=== PATIENT | male | born 1975 | race Caucasian/White ===

== ENCOUNTER 2019-09-08 08:00 | Emergency (ER) | payer BC ==
[2019-09-08 08:18] VITALS: BP 156/97; PULSE 100
[2019-09-08] MEDS ORDERED: HYDROmorphone 1 MG/ML Syringe IVPUSH PRN (08:20)
[2019-09-08] MEDS ORDERED: Sodium Chloride 0.9% 10 ML Syringe FLUSH PRN (08:21)
--- NOTE | 2019-09-08 08:21 | EDM.PDOC ---
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 States that it is a sharp stabbing and burning pain. "It feels like a hot coal is in there". No vomiting or diarrhea at this time. Feels that he is getting hot but has not had a fever at this time. States that the pain is getting worse. 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 Onset: Sudden Location: Reports: Abdomen Associated Symptoms: Reports: Nausea/Vomiting. Denies: Fever/Chills Left Abdomen Pain Score (Numeric/FACES): 10 - Related Data Allergies Allergy/AdvReac Type Severity Reaction Status Date / Time No Known Allergies Allergy Verified 09/08/19 13:36 Home Meds: Home Meds Acetaminophen/Diphenhydramine [Acetaminophen Pm Gelcap] 1 tab PO BEDTIME PRN [History] DULoxetine HCl [Cymbalta] 60 mg PO DAILY 08/24/14 [History] Pantoprazole Sodium 40 mg PO DAILY 08/24/14 [History] Sucralfate [Carafate] 1 tab PO TID 08/24/14 [History] traMADol [Ultram] 100 mg PO QID 08/24/14 [History] Losartan/Hydrochlorothiazide [Losartan-HCTZ 100-12.5 MG] 1 tab PO DAILY [History] Cholecalciferol (Vitamin D3) [Vitamin D3] 2,000 units PO DAILY 05/04/16 [History ] Past Medical History Cardiovascular History: Reports: Hypertension Other Gastrointestinal History: malrotation of bowel with repair - Past Surgical History GI Surgical History: Reports: Colon Social & Family History - Family History Family Medical History: Noncontributory - Tobacco Use Smoking Status *Q: Never Smoker - Living Situation & Occupation Living situation: Reports: , with Family Occupation: Employed ED ROS GENERAL - Review of Systems Review Of Systems: See Below Constitutional: Denies: Fever, Chills HEENT: Reports: No Symptoms Respiratory: Reports: No Symptoms Cardiovascular: Reports: No Symptoms GI/Abdominal: Reports: Abdominal Pain. Denies: Constipation, Diarrhea : Reports: No Symptoms Musculoskeletal: Reports: No Symptoms Skin: Reports: No Symptoms Neurological: Reports: No Symptoms ED EXAM, GI/ABD - Physical Exam Exam: See Below Exam Limited By: No Limitations General Appearance: Alert, WD/WN, No Apparent Distress Ears: Normal External Exam, Normal Canal, Normal TMs Nose: Normal Inspection Head: Atraumatic, Normocephalic Neck: Normal Inspection, Supple, Non-Tender, Full Range of Motion Respiratory/Chest: No Respiratory Distress, Lungs Clear, Normal Breath Sounds Cardiovascular: Normal Peripheral Pulses, Regular Rate, Rhythm, No Edema GI/Abdominal Exam: Normal Bowel Sounds, Soft, Non-Tender Back Exam: Normal Inspection Extremities: Normal Inspection, No Pedal Edema, Normal Capillary Refill Neurological: Alert, Oriented Psychiatric: Normal Affect Skin Exam: Warm, Dry, Intact Course - Vital Signs Last Recorded V/S: Last Vital Signs Temp 96.8 F 09/08/19 08:17 Pulse 100 09/08/19 08:17 Resp 92 H 09/08/19 08:17 BP 156/97 H 09/08/19 08:17 Pulse Ox 100 09/08/19 08:17 - Orders/Labs/Meds Orders: Active Orders 24 hr Category Date Time Status Abdomen 2V AP Flat Upright [CR] Stat Exams 09/08/19 08:19 Taken Abdomen Pelvis w Cont [CT] Stat Exams 09/08/19 09:14 Taken Saline Lock Insert [OM.PC] Routine Oth 09/08/19 08:21 Ordered Labs: Laboratory Tests 09/08/19 09/08/19 09/08/19 Range/Units 08:25 08:25 08:48 WBC 4.0 L (5.0-10.0) 10^3/uL RBC 4.78 (4.50-6.00) 10^6/uL Hgb 14.1 (14.0-18.0) g/dL Hct 41.3 (40.0-54.0) % MCV 86.4 (82.0-94.0) fL MCH 29.5 (27.0-32.0) pg MCHC 34.1 (33.0-38.0) g/dL RDW Coeff of Charlie 13.2 (11.0-15.0) % Plt Count 210 (150-400) 10^3/uL Neut % (Auto) 60.5 (35-85) % Lymph % (Auto) 31.9 (10-55) % [place] % (Auto) 7.3 (0-16) % Eos % (Auto) 0 (0-5) % Baso % (Auto) 0.3 (0-3) % Neut # (Auto) 2.41 (1.80-7.00) 10^3/uL Lymph # (Auto) 1.27 (1.00-4.80) 10^3/uL [place] # (Auto) 0.29 (0.00-0.80) 10^3/uL Eos # (Auto) 0.00 (0.00-0.45) 10^3/uL Baso # (Auto) 0.01 10^3/uL Sodium 141 (136-145) mEq/L Potassium 3.7 (3.5-5.0) mEq/L Chloride 105 (98-106) mEq/L Carbon Dioxide 26 (21-32) mmol/L BUN 12 (7-18) mg/dL Creatinine 1.0 (0.7-1.3) mg/dL Est Cr Clr Drug Dosing 105.42 mL/min Estimated GFR (MDRD) > 60 (>=60) mL/min Glucose 122 H D (75-99) mg/dL Calcium 8.7 (8.4-10.1) mg/dL C-Reactive Protein < 0.2 L (0.2-0.8) mg/dL Urine Color Yellow (YELLOW) Urine Appearance Clear (CLEAR) Urine pH 6.0 (4.5-8.0) Ur Specific [place] 1.020 (1.003-1.020) Urine Protein Negative (NEGATIVE) mg/dL Urine Glucose (UA) Negative (NEGATIVE) mg/dL Urine Ketones Negative (NEGATIVE) mg/dL Urine Occult Blood Trace-intact H (NEGATIVE) Urine Nitrite Negative (NEGATIVE) Urine Bilirubin Negative (NEGATIVE) Urine Urobilinogen 0.2 (0.2-1.0) EU/dL Ur Leukocyte Esterase Negative (NEGATIVE) Urine RBC 0-5 (0-5) /HPF Urine WBC Not seen (0-5) /HPF Urine Mucus Few H (NOT SEEN) /HPF Meds: Medications Discontinued Medications Generic Name Dose Route Start Last Admin Trade Name Freq PRN Reason Stop Dose Admin Barium Sulfate 450 ml 09/08/19 10:14 09/08/19 10:26 Readi-Cat 2 PO 09/08/19 10:15 450 ml ONETIME ONE Administration Fentanyl 50 mcg 09/08/19 09:59 09/08/19 10:05 Sublimaze IVPUSH 09/08/19 10:00 50 mcg ONETIME ONE Administration Hydromorphone HCl 1 mg 09/08/19 08:20 09/08/19 08:27 Dilaudid IVPUSH 1 mg Q2H PRN Administration Pain Hydromorphone HCl 2 mg 09/08/19 09:15 09/08/19 09:28 Dilaudid IVPUSH 09/08/19 09:16 2 mg ONETIME ONE Administration Ondansetron HCl 8 mg/ Sodium 54 mls @ 100 mls/hr 09/08/19 09:16 09/08/19 09: 34 Chloride IV 09/08/19 09:48 100 mls/hr NOW ONE Administration Lactated Ringer's 1,000 mls @ 100 mls/hr 09/08/19 12:00 Ringers, Lactated IV ASDIRECTED ALBER Iopamidol 100 ml 09/08/19 10:14 09/08/19 10:26 Isovue-370 (76%) IVPUSH 09/08/19 10:15 100 ml ONETIME ONE Administration Sodium Chloride 10 ml 09/08/19 08:21 09/08/19 08:30 Saline Flush FLUSH 10 ml ASDIRECTED PRN Administration Keep Vein Open Departure - Departure Time of Disposition: 12:10 Disposition: DC/Tfer to Other 70 Condition: Good Clinical Impression: Abdominal pain Qualifiers: Abdominal location: left lower quadrant Qualified Code(s): R10.32 - Left lower quadrant pain - Discharge Information *PRESCRIPTION DRUG MONITORING PROGRAM REVIEWED*: Not Applicable *COPY OF PRESCRIPTION DRUG MONITORING REPORT IN PATIENT MARIFER: Not Applicable Referrals: PCP,Unobtain [Primary Care Provider] - Forms: ED Department Discharge Additional Instructions: Flexible sigmoidoscopy with Dr. Gomez today. - Problem List & Annotations (1) Abdominal pain SNOMED Code(s): 83062920 Code(s): R10.9 - UNSPECIFIED ABDOMINAL PAIN Status: Acute Qualifiers: Abdominal location: left lower quadrant Qualified Code(s): R10.32 - Left lower quadrant pain - Problem List Review Problem List Initiated/Reviewed/Updated: Yes - My Orders Last 24 Hours: My Active Orders 09/08/19 08:19 Abdomen 2V AP Flat Upright [CR] Stat 09/08/19 08:21 Saline Lock Insert [OM.PC] Routine 09/08/19 09:14 Abdomen Pelvis w Cont [CT] Stat - Assessment/Plan Admission H&P: Please use this note as an admission H&P Last 24 Hours: My Active Orders 09/08/19 08:19 Abdomen 2V AP Flat Upright [CR] Stat 09/08/19 08:21 Saline Lock Insert [OM.PC] Routine 09/08/19 09:14 Abdomen Pelvis w Cont [CT] Stat
[2019-09-08 08:37] LABS: CHLORIDE,CL 105 mEq/L (98-106); SODIUM,NA 141 mEq/L (136-145)
[2019-09-08] MEDS ORDERED: HYDROmorphone 1 MG/ML Syringe IVPUSH ONE (09:15)
[2019-09-08] MEDS ORDERED: Ondansetron 8 MG in Sodium Chloride 0.9% 50 ML IV ONE (09:16)
[2019-09-08] MEDS ORDERED: fentaNYL 100 MCG/2 ML SDV IVPUSH ONE (09:59)
[2019-09-08] MEDS ORDERED: Barium Sulfate Oral Susp 450 ML Bottle PO ONE (10:14)
[2019-09-08] MEDS ORDERED: Iopamidol 755 Mg/ML 100 ML Bottle IVPUSH ONE (10:14)
[2019-09-08] MEDS ORDERED: Lactated Ringers 1,000 ML IV SCH (12:00)
== END 2019-09-08 12:14 | disposition other institution (70) ==
LOC: CC.ED 08:00
DX: R10.13 Epigastric pain (principal); I10 Essential (primary) hypertension; Z79.899 Other long term (current) drug therapy
CPT/HCPCS: 36415; 74019; 74177; 80048; 81001; 85025; 86140; 96365; 96375; 96376; 99285; J1170; J2405; J3010; J7050; Q9967

== ENCOUNTER 2019-09-08 13:56 | Observation (INO) | payer BC ==
[2019-09-08] MEDS ORDERED: Ondansetron 4 MG Tab.DIS PO PRN (14:15)
[2019-09-08] MEDS ORDERED: Lactated Ringers 1,000 ML IV SCH (14:15)
[2019-09-08] MEDS ORDERED: fentaNYL 100 MCG/2 ML SDV IVPUSH PRN (14:18)
[2019-09-08] MEDS ORDERED: Enoxaparin 40 MG/0.4 ML Syringe SUBCUT SCH (16:00)
[2019-09-08] MEDS ORDERED: Acetaminophen 500 MG Tab PO PRN (16:10)
[2019-09-08] MEDS ORDERED: diphenhydrAMINE 25 MG Cap PO PRN (16:12)
[2019-09-08] MEDS: traMADol 50 MG Tab PO SCH ×2 (16:24→21:46)
[2019-09-08] MEDS: TRAMADOL 50 MG PO SCH (20:00)
[2019-09-08] MEDS ORDERED: SUCRALFATE 1 GM PO SCH (20:00)
[2019-09-09] MEDS ORDERED: Pantoprazole 40 MG Tab.CR PO SCH (07:00)
[2019-09-09] MEDS: TRAMADOL 50 MG PO SCH (07:41)
[2019-09-09] MEDS ORDERED: Cyanocobalamin (Vitamin B12) 1,000 MCG/ML SDV IM ONE (07:53)
--- NOTE | 2019-09-09 07:58 | PCM.DCSUM1 ---
Discharge Summary - Hospital Course HPI Initial Comments: This patient came to the ER yesterday for LLQ abdominal pain. Patient had a CT scan that was negative. General surgeon then scoped the patient and reported it was normal. The patient is supposed to wear a CPAP at home at bedtime, but does not. He had desaturation in the 60s after procedure per general surgeon. Patient was admitted for observation. The patient today reports that his pain has resolved. He reports he is feeling good and is ready to go home. Patient is 99% on 2L NC. This oxygen was removed, oxygen saturation is 97%. Patient requests a Vit B12 injection while here, ordered. The patient CBC is unremarkable today, no fever, no vomiting, oxygen saturation is stable, and pain is resolved. Will discharge. - Discharge Data Discharge Date: 09/09/19 Discharge Disposition: Home, Self-Care 01 Condition: Good - Referral to Home Health Primary Care Physician: Rojelio Amanda MD - Patient Instructions Diet: Usual Diet as Tolerated Activity: As Tolerated Driving: May Drive Today Showering/Bathing: May Shower Notify Provider of: Fever, Increased Pain, Nausea and/or Vomiting Other/Special Instructions: Followup with your primary care provider in the next 5-7 days. Return to the ER for worsening of condition or any emergent concerns such as increase in abdominal pain, vomiting, fever. Increase fluids. Increase fiber. Miralax as needed. Enemas as needed - Discharge Plan *PRESCRIPTION DRUG MONITORING PROGRAM REVIEWED*: Not Applicable *COPY OF PRESCRIPTION DRUG MONITORING REPORT IN PATIENT MARIFER: Not Applicable Home Medications: Home Meds Acetaminophen/Diphenhydramine [Acetaminophen Pm Gelcap] 1 tab PO BEDTIME PRN [History] Pantoprazole Sodium 40 mg PO DAILY 08/24/14 [History] Sucralfate [Carafate] 1.5 tab PO BID 08/24/14 [History] traMADol [Ultram] 100 mg PO BID 08/24/14 [History] Losartan/Hydrochlorothiazide [Losartan-HCTZ 100-12.5 MG] 1 tab PO DAILY [History] Cholecalciferol (Vitamin D3) [Vitamin D3] 2,000 units PO DAILY 05/04/16 [History ] Pramipexole [Mirapex] 0.5 mg PO BEDTIME 09/08/19 [History] Pregabalin [Lyrica] 50 mg PO BEDTIME 09/08/19 [History] Pregabalin [Lyrica] 100 mg PO DAILY 09/08/19 [History] Venlafaxine HCl [Venlafaxine ER] 75 mg PO DAILY 09/08/19 [History] Oxygen Therapy Mode: CPAP Patient Handouts: Abdominal Pain, Adult, [id number] - Discharge Summary/Plan Comment DC Time >30 min.: No Discharge Summary/Plan Comment: Followup with your primary care provider in the next 5-7 days Return to the ER for worsening of condition or any emergent concerns such as increase in abdominal pain, vomiting, fever Increase fluids Increase fiber Miralax as needed Enemas as needed - General Info Functional Status: Reports: Pain Controlled, Tolerating Diet, Ambulating - Review of Systems General: Reports: No Symptoms. Denies: Fever HEENT: Reports: No Symptoms Pulmonary: Reports: No Symptoms Cardiovascular: Reports: No Symptoms Gastrointestinal: Reports: No Symptoms. Denies: Abdominal Pain, Diarrhea, Nausea, Vomiting Genitourinary: Reports: No Symptoms Musculoskeletal: Reports: No Symptoms Skin: Reports: No Symptoms Neurological: Reports: No Symptoms Psychiatric: Reports: No Symptoms - Patient Data Vitals - Most Recent: Last Vital Signs Temp 98.5 F 09/09/19 04:00 Pulse 85 09/09/19 04:00 Resp 16 09/09/19 04:00 BP 127/67 09/09/19 04:00 Pulse Ox 99 09/09/19 04:00 Weight - Most Recent: 210 lb Lab Results - Last 24 hrs: Laboratory Results - last 24 hr 09/09/19 Range/Units 07:00 WBC 5.4 (5.0-10.0) 10^3/uL RBC 4.64 (4.50-6.00) 10^6/uL Hgb 13.6 L (14.0-18.0) g/dL Hct 40.9 (40.0-54.0) % MCV 88.1 (82.0-94.0) fL MCH 29.3 (27.0-32.0) pg MCHC 33.3 (33.0-38.0) g/dL RDW Coeff of Charlie 13.3 (11.0-15.0) % Plt Count 203 (150-400) 10^3/uL Neut % (Auto) 59.2 (35-85) % Lymph % (Auto) 31.5 (10-55) % [place] % (Auto) 8.7 (0-16) % Eos % (Auto) 0.4 (0-5) % Baso % (Auto) 0.2 (0-3) % Neut # (Auto) 3.20 (1.80-7.00) 10^3/uL Lymph # (Auto) 1.70 (1.00-4.80) 10^3/uL [place] # (Auto) 0.47 (0.00-0.80) 10^3/uL Eos # (Auto) 0.02 (0.00-0.45) 10^3/uL Baso # (Auto) 0.01 10^3/uL Med Orders - Current: Current Medications Acetaminophen (Tylenol Extra Strength) 500 mg PO BEDTIME PRN PRN Reason: INSOMNIA Cyanocobalamin (Vitamin B12) 1,000 mcg IM ONETIME ONE Stop: 09/09/19 07:54 Diphenhydramine HCl (Benadryl) 25 mg PO BEDTIME PRN PRN Reason: INSOMNIA Duloxetine HCl (Cymbalta) 60 mg PO DAILY [facility] Last Admin: 09/09/19 07:34 Dose: Not Given Enoxaparin Sodium (Lovenox) 40 mg SUBCUT Q24H [facility] Last Admin: 09/08/19 16:23 Dose: 40 mg Fentanyl (Sublimaze) 25 mcg IVPUSH Q6H PRN PRN Reason: Abdominal Pain Lactated Ringer's (Ringers, Lactated) 1,000 mls @ 100 mls/hr IV ASDIRECTED [facility] Last Admin: 09/08/19 16:24 Dose: 100 mls/hr Losartan 100mg- Hydrochlorothiazide 12.5mg #Own Med# 1 each PO DAILY [facility] Last Admin: 09/09/19 07:37 Dose: 1 each Ondansetron HCl (Zofran Odt) 8 mg PO Q4H PRN PRN Reason: nausea, able to take PO Pantoprazole Sodium (Protonix) 40 mg PO ACBREAKFAST [facility] Last Admin: 09/09/19 06:44 Dose: Not Given Pramipexole Dihydrochloride (Mirapex) 0.5 mg PO BEDTIME [facility] Last Admin: 09/08/19 20:00 Dose: 0.5 mg Pregabalin (Lyrica) 50 mg PO BEDTIME [facility] Pregabalin (Lyrica) 100 mg PO DAILY [facility] Last Admin: 09/09/19 07:37 Dose: 100 mg Sucralfate (Carafate) 1.5 gm PO 0800,1730 [facility] Last Admin: 09/09/19 07:33 Dose: 1.5 gm Tramadol HCl (Ultram) 100 mg PO BID [facility] Last Admin: 09/09/19 07:41 Dose: 100 mg Venlafaxine HCl (Effexor Xr) 75 mg PO DAILY [facility] Last Admin: 09/09/19 07:35 Dose: 75 mg Discontinued Medications Hydrochlorothiazide (Hydrochlorothiazide) 12.5 mg PO DAILY [facility] Losartan Potassium (Cozaar) 100 mg PO DAILY [facility] Sucralfate (Carafate) 1.5 gm PO TID [facility] Last Admin: 09/08/19 19:32 Dose: 1.5 gm Tramadol HCl (Ultram) 100 mg PO QID [facility] Last Admin: 09/08/19 21:46 Dose: Not Given - Exam General: Reports: Alert, Oriented, Cooperative Lungs: Reports: Clear to Auscultation, Normal Respiratory Effort Cardiovascular: Reports: Regular Rate, Regular Rhythm, No Murmurs GI/Abdominal Exam: Normal Bowel Sounds, Soft, Non-Tender, No Organomegaly, No Distention, No Abnormal Bruit, No Mass, Pelvis Stable, Other (old surgical scar vertical) Back Exam: Reports: Normal Inspection, Full Range of Motion Extremities: Normal Inspection, Normal Range of Motion, Non-Tender, No Pedal Edema, Normal Capillary Refill Skin: Reports: Warm, Dry, Intact Psy/Mental Status: Reports: Alert, Normal Affect, Normal Mood
[2019-09-09] MEDS ORDERED: Hydrochlorothiazide 12.5 MG Cap PO SCH (08:00)
[2019-09-09] MEDS ORDERED: SUCRALFATE 1 GM PO SCH (08:00)
[2019-09-09] MEDS ORDERED: Losartan 100 MG Tab PO SCH (08:00)
[2019-09-09] MEDS ORDERED: DULoxetine 30 MG Cap PO SCH (08:00)
[2019-09-09] MEDS ORDERED: [UNRECOGNIZED DRUG - OTHER] PO SCH (08:00)
[2019-09-09] MEDS ORDERED: VENLAFAXINE 75 MG PO SCH (08:00)
[2019-09-09] MEDS ORDERED: PREGABALIN 50 MG PO SCH ×2 (08:00→20:00)
[2019-09-09] MEDS ORDERED: LOSARTAN PO SCH (08:00)
[2019-09-09 09:40] VITALS: BP 129/73; PULSE 72
[2019-09-09] MEDS ORDERED: PRAMIPEXOLE 0.5 MG PO SCH (20:00)
== END 2019-09-09 09:25 | disposition home or self-care (01) ==
LOC: UNDOADMOB 13:56 → CC.MS 13:56
PROVIDERS: ADMIT Physician Assistant Medical; ATTEND Family Medicine
DX: R10.32 Left lower quadrant pain (principal); I10 Essential (primary) hypertension; Z79.899 Other long term (current) drug therapy
CPT/HCPCS: 36415; 85025; A9270; J1650; J3420; J7120; 96360; 96361; 96372; G0378

== ENCOUNTER → 2019-09-08 | Day surgery (SDC) | payer BC ==
[~2019-09-08] MED LIST: Lactated Ringers 1,000 ML ONE; Midazolam 1 MG/ML 2 ML SDV IV ONE; fentaNYL 100 MCG/2 ML SDV IV ONE
--- NOTE | 2019-09-08 13:31 | OR ---
DATE OF OPERATION: 09/08/2019 PREOPERATIVE DIAGNOSIS: LEFT LOWER QUADRANT ABDOMINAL PAIN AND POSSIBLE CT SCAN ABNORMALITY OF THE COLON. POSTOPERATIVE DIAGNOSIS: LEFT LOWER QUADRANT ABDOMINAL PAIN AND POSSIBLE CT SCAN ABNORMALITY OF THE COLON. SURGEON: Dc Gomez MD PROCEDURE: TOTAL COLONOSCOPY. ANESTHESIA: Conscious sedation. SPECIMEN: None. FINDINGS: Normal colonoscopy. RECOMMENDATIONS: I do not think this patient's left lower quadrant abdominal pain is related to colon. He does not appear to have an obstruction on CT scan. There was a questionable area in the sigmoid, but with the scope there is no significant abnormality there. Probably consider simply symptomatic control. DESCRIPTION OF PROCEDURE: After adequate preparation, the colonoscope was inserted into the rectum. This patient had two Fleet enemas pre-scope and actually they did pretty well. I was able to advance the scope up to the proximal transverse colon without any difficulty. Even though this patient has had a malrotation surgery, the colonoscope glided along the colon without problems. At the proximal transverse colon and hepatic flexure, the bowel prep was poor, but it was still adequate to look at any gross abnormalities. The scope was advanced down through the cecum, and I was able to go into the terminal ileum for at least a foot or so. No thickening or abnormalities of the cecal lining were noted. Air was suctioned from the colon and the scope removed. ZURI/DANIE /[id number]
[2019-09-08 13:55] VITALS: BP 129/81; PULSE 76
== END ==
LOC: CC.SDS 12:28
PROVIDERS: ATTEND Surgery
DX: R10.32 Left lower quadrant pain (principal); I10 Essential (primary) hypertension; Z79.899 Other long term (current) drug therapy
CPT/HCPCS: 45330; J2250; J3010

== ENCOUNTER 2019-11-28 14:45 | Emergency (ER) | payer BC ==
[2019-11-28 15:24] LABS: CHLORIDE,CL 99 mEq/L (98-106); SODIUM,NA 138 mEq/L (136-145)
[2019-11-28 16:14] VITALS: BP 120/72; PULSE 83
[2019-11-28] MEDS ORDERED: Sodium Chloride 0.9% 1,000 ML IV ONE (16:14)
--- NOTE | 2019-11-28 16:52 | EDM.PDOC ---
ED HPI GENERAL MEDICAL PROBLEM - General Chief Complaint: Neuro Symptoms/Deficits Stated Complaint: slow reponse, blurred vision, lightheaded Time Seen by Provider: 11/28/19 14:57 Source of Information: Reports: Patient, Family - History of Present Illness INITIAL COMMENTS - FREE TEXT/NARRATIVE: Cortez is a 44 year old male who presents ambulatory to the ED with his with c/o "feeling cloudy." He was seen in [facility] and advised to present to ED. He reports he has "cloudy vision" and feels like he was "drugged or something." Has difficulty describing his vision. He reports that he hasn't felt well the past two days, but it became worse this afternoon. He reports his vision became "cloudy" so he called his , who recommended he be seen. He reports the past few days he has "felt off balance." Denies any dizziness or spinning sensation. Does report it feels "weird when he breathes" too. For the past few months he has been struggling with headaches. Had recent MRI in October he believes. Does not currently have a headache. No recent head trauma. He reports he just feels fatigued and "drugged." He is also scheduled for a sleep study in the near future, so has been more fatigued lately. Denies any ETOH, drug, or other medications. He is alert and oriented upon presentation. Does report numbness in his legs, which has been chronic for him. does report he has been under increased stress the last few days. He does not feel this has affected him. No other complaints. 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 Onset Date: 11/26/19 Duration: Getting Worse Location: Reports: Generalized Associated Symptoms: Reports: Loss of Appetite, Malaise, Weakness. Denies: Confusion, Chest Pain, Cough, cough w sputum, Diaphoresis, Fever/Chills, Headaches, Nausea/Vomiting, Rash, Seizure, Shortness of Breath, Syncope Back Pain Score (Numeric/FACES): 6 - Related Data Allergies Allergy/AdvReac Type Severity Reaction Status Date / Time No Known Allergies Allergy Verified 11/28/19 15:11 Home Meds: Home Meds Acetaminophen/Diphenhydramine [Acetaminophen Pm Gelcap] 1 tab PO BEDTIME PRN [History] Pantoprazole Sodium 40 mg PO DAILY 08/24/14 [History] Sucralfate [Carafate] 1.5 tab PO BID 08/24/14 [History] traMADol [Ultram] 100 mg PO BID 08/24/14 [History] Losartan/Hydrochlorothiazide [Losartan-HCTZ 100-12.5 MG] 1 tab PO DAILY [History] Cholecalciferol (Vitamin D3) [Vitamin D3] 2,000 units PO DAILY 05/04/16 [History ] Pramipexole [Mirapex] 0.5 mg PO BEDTIME 09/08/19 [History] Pregabalin [Lyrica] 150 mg PO BID 09/08/19 [History] Venlafaxine HCl [Venlafaxine ER] 75 mg PO DAILY 09/08/19 [History] Past Medical History HEENT History: Reports: Other (See Below) Other HEENT History: welding spark to left ear Cardiovascular History: Reports: High Cholesterol, Hypertension Respiratory History: Reports: Other (See Below) Other Respiratory History: going to be getting tested for sleep apnea soon Gastrointestinal History: Reports: Colon Polyp, Diverticulosis, GERD Other Gastrointestinal History: bowel surgeries x2 in 2009 and 1973. Musculoskeletal History: Reports: Back Pain, Chronic, Fracture, Fibromyalgia, Other (See Below) Other Musculoskeletal History: bone spur Neurological History: Reports: Headaches, Chronic, Neuropathy, Peripheral, Vertigo, Other (See Below) Other Neuro History: herniated disc Psychiatric History: Reports: Anxiety, Depression Hematologic History: Reports: Blood Transfusion(s) Dermatologic History: Reports: Eczema - Past Surgical History Cardiovascular Surgical History: Reports: None Respiratory Surgical History: Reports: None GI Surgical History: Reports: Colon, Colonoscopy, Hernia, Inguinal, Small Bowel , Other (See Below) Other GI Surgeries/Procedures: umbilical hernia Neurological Surgical History: Reports: None Musculoskeletal Surgical History: Reports: Arthroscopic Procedure, Carpal Tunnel , Hip Replacement Dermatological Surgical History: Reports: None Social & Family History - Family History Family Medical History: Noncontributory - Tobacco Use Smoking Status *Q: Never Smoker - Caffeine Use Caffeine Use: Reports: None - Recreational Drug Use Recreational Drug Use: No ED ROS GENERAL - Review of Systems Review Of Systems: See Below Constitutional: Reports: Malaise, Weakness, Fatigue, Decreased Appetite. Denies : Fever, Chills HEENT: Reports: Vision Change. Denies: Eye Discharge, Eye Pain, Rhinitis, Sinus Problem, Vertigo Respiratory: Denies: Shortness of Breath, Wheezing, Pleuritic Chest Pain, Cough , Sputum, Hemoptysis Cardiovascular: Denies: Chest Pain, Dyspnea on Exertion, Edema, Lightheadedness , Syncope Endocrine: Reports: Fatigue. Denies: High Glucose, Low Glucose, Polydypsia, Polyuria GI/Abdominal: Reports: Decreased Appetite. Denies: Abdominal Pain, Anorexia, Black Stool, Bloody Stool, Constipation, Diarrhea, Hematemesis, Nausea, Vomiting : Denies: Dysuria, Frequency, Urgency Musculoskeletal: Reports: Back Pain Skin: Denies: Diaphoresis Neurological: Reports: Numbness, Paresthesia, Tingling, Weakness. Denies: Confusion, Dizziness, Headache, Syncope, Tremors Psychiatric: Reports: Anxiety ED EXAM, NEURO - Physical Exam Exam: See Below Exam Limited By: No Limitations General Appearance: Alert, WD/WN, No Apparent Distress, Anxious Eye Exam: Bilateral Eye: EOMI, Normal Fundi, Normal Inspection, PERRL Ears: Normal External Exam, Normal Canal, Hearing Grossly Normal, Normal TMs Nose: Normal Inspection, Normal Mucosa, No Blood Throat/Mouth: Normal Inspection, Normal Lips, Normal Teeth, Normal Gums, Normal Oropharynx, Normal Voice, No Airway Compromise Head Exam: Atraumatic, Normocephalic Neck: Normal Inspection, Supple, Non-Tender, Full Range of Motion Respiratory/Chest: No Respiratory Distress, Lungs Clear, Normal Breath Sounds, No Accessory Muscle Use, Chest Non-Tender Cardiovascular: Normal Peripheral Pulses, Regular Rate, Rhythm, No Edema, No Gallop, No JVD, No Murmur, No Rub GI/Abdominal: Normal Bowel Sounds, Soft, Non-Tender, No Organomegaly, No Distention, No Abnormal Bruit, No Mass Neurological: Alert, Normal Mood/Affect, Normal Dorsiflexion, CN II-XII Intact, Normal Plantar Flexion, Normal Gait, Normal Reflexes, No Motor/Sensory Deficits , Oriented x 3, Abnormal Finger to Nose, Abnormal Sensation, Abnormal Light Touch Back Exam: Normal Inspection, Full Range of Motion, NT Extremities: Normal Inspection, Normal Range of Motion, Non-Tender, No Pedal Edema, Normal Capillary Refill Psychiatric: Anxious Skin Exam: Warm, Dry, Intact, Normal Color, No Rash Course - Vital Signs Last Recorded V/S: Last Vital Signs Temp 98.4 F 11/28/19 15:18 Pulse 83 11/28/19 16:13 Resp 16 11/28/19 16:13 BP 120/72 11/28/19 16:13 Pulse Ox 95 11/28/19 16:13 Orthostatic Blood Pressure [ 117/74 Standing] Orthostatic Blood Pressure [ 119/70 Sitting] Orthostatic Blood Pressure [ 128/85 Supine] - Orders/Labs/Meds Labs: Laboratory Tests 11/28/19 11/28/19 11/28/19 Range/Units 14:53 14:53 14:54 WBC (5.0-10.0) 10^3/uL RBC (4.50-6.00) 10^6/uL Hgb (14.0-18.0) g/dL Hct (40.0-54.0) % MCV (82.0-94.0) fL MCH (27.0-32.0) pg MCHC (33.0-38.0) g/dL RDW Coeff of Charlie (11.0-15.0) % Plt Count (150-400) 10^3/uL Neut % (Auto) (35-85) % Lymph % (Auto) (10-55) % [place] % (Auto) (0-16) % Eos % (Auto) (0-5) % Baso % (Auto) (0-3) % Neut # (Auto) (1.80-7.00) 10^3/uL Lymph # (Auto) (1.00-4.80) 10^3/uL [place] # (Auto) (0.00-0.80) 10^3/uL Eos # (Auto) (0.00-0.45) 10^3/uL Baso # (Auto) 10^3/uL PT (9.7-12.3) SEC INR (0.92-1.18) APTT (23.2-32.3) SEC Carboxyhemoglobin % Sodium 138 (136-145) mEq/L Potassium 3.8 (3.5-5.0) mEq/L Chloride 99 (98-106) mEq/L Carbon Dioxide 29 (21-32) mmol/L BUN 17 (7-18) mg/dL Creatinine 1.2 (0.7-1.3) mg/dL Est Cr Clr Drug Dosing 90.38 mL/min Estimated GFR (MDRD) > 60 (>=60) mL/min Glucose 126 H (75-99) mg/dL Calcium 8.7 (8.4-10.1) mg/dL Creatine Kinase 261 H (35-232) U/L Troponin I < 0.017 (0.00-0.06) ng/mL Urine Color Yellow (YELLOW) Urine Appearance Clear (CLEAR) Urine pH 6.0 (4.5-8.0) Ur Specific [place] 1.020 (1.003-1.020) Urine Protein Negative (NEGATIVE) mg/dL Urine Glucose (UA) Negative (NEGATIVE) mg/dL Urine Ketones Negative (NEGATIVE) mg/dL Urine Occult Blood Negative (NEGATIVE) Urine Nitrite Negative (NEGATIVE) Urine Bilirubin Negative (NEGATIVE) Urine Urobilinogen 0.2 (0.2-1.0) EU/dL Ur Leukocyte Esterase Negative (NEGATIVE) Urine Opiates Screen Negative (NEGATIVE) Ur Oxycodone Screen Negative (NEGATIVE) Urine Methadone Screen Negative (NEGATIVE) Ur Barbiturates Screen Negative (NEGATIVE) U Tricyclic Antidepress Negative (NEGATIVE) Ur Phencyclidine Scrn Negative (NEGATIVE) Ur Amphetamine Screen Negative (NEGATIVE) U Methamphetamines Scrn Negative (NEGATIVE) Urine MDMA Screen Negative (NEGATIVE) U Benzodiazepines Scrn Negative (NEGATIVE) Urine Cocaine Screen Negative (NEGATIVE) U Marijuana (THC) Screen Negative (NEGATIVE) Ethyl Alcohol < 3 (0-3) mg/dL 11/28/19 11/28/19 11/28/19 Range/Units 15:07 15:07 16:57 WBC 5.8 (5.0-10.0) 10^3/uL RBC 5.05 (4.50-6.00) 10^6/uL Hgb 14.9 (14.0-18.0) g/dL Hct 44.5 (40.0-54.0) % MCV 88.1 (82.0-94.0) fL MCH 29.5 (27.0-32.0) pg MCHC 33.5 (33.0-38.0) g/dL RDW Coeff of Charlie 13.4 (11.0-15.0) % Plt Count 269 (150-400) 10^3/uL Neut % (Auto) 58.5 (35-85) % Lymph % (Auto) 33.3 (10-55) % [place] % (Auto) 7.4 (0-16) % Eos % (Auto) 0.5 (0-5) % Baso % (Auto) 0.3 (0-3) % Neut # (Auto) 3.39 (1.80-7.00) 10^3/uL Lymph # (Auto) 1.93 (1.00-4.80) 10^3/uL [place] # (Auto) 0.43 (0.00-0.80) 10^3/uL Eos # (Auto) 0.03 (0.00-0.45) 10^3/uL Baso # (Auto) 0.02 10^3/uL PT 9.6 L (9.7-12.3) SEC INR 0.93 (0.92-1.18) APTT 26.7 (23.2-32.3) SEC Carboxyhemoglobin 2.4 % Sodium (136-145) mEq/L Potassium (3.5-5.0) mEq/L Chloride (98-106) mEq/L Carbon Dioxide (21-32) mmol/L BUN (7-18) mg/dL Creatinine (0.7-1.3) mg/dL Est Cr Clr Drug Dosing mL/min Estimated GFR (MDRD) (>=60) mL/min Glucose (75-99) mg/dL Calcium (8.4-10.1) mg/dL Creatine Kinase (35-232) U/L Troponin I (0.00-0.06) ng/mL Urine Color (YELLOW) Urine Appearance (CLEAR) Urine pH (4.5-8.0) Ur Specific [place] (1.003-1.020) Urine Protein (NEGATIVE) mg/dL Urine Glucose (UA) (NEGATIVE) mg/dL Urine Ketones (NEGATIVE) mg/dL Urine Occult Blood (NEGATIVE) Urine Nitrite (NEGATIVE) Urine Bilirubin (NEGATIVE) Urine Urobilinogen (0.2-1.0) EU/dL Ur Leukocyte Esterase (NEGATIVE) Urine Opiates Screen (NEGATIVE) Ur Oxycodone Screen (NEGATIVE) Urine Methadone Screen (NEGATIVE) Ur Barbiturates Screen (NEGATIVE) U Tricyclic Antidepress (NEGATIVE) Ur Phencyclidine Scrn (NEGATIVE) Ur Amphetamine Screen (NEGATIVE) U Methamphetamines Scrn (NEGATIVE) Urine MDMA Screen (NEGATIVE) U Benzodiazepines Scrn (NEGATIVE) Urine Cocaine Screen (NEGATIVE) U Marijuana (THC) Screen (NEGATIVE) Ethyl Alcohol (0-3) mg/dL Meds: Medications Discontinued Medications Generic Name Dose Route Start Last Admin Trade Name Paulino PRN Reason Stop Dose Admin Sodium Chloride 1,000 mls @ 999 mls/hr 11/28/19 16:14 11/28/19 16:39 Normal Saline IV 11/28/19 17:14 Not Given .BOLUS ONE - Radiology Interpretation Free Text/Narrative:: Negative head CT CT Results Date: 11/28/19 CT Results Time: 16:02 Departure - Departure Time of Disposition: 16:52 Disposition: Home, Self-Care 01 Condition: Fair Clinical Impression: Blurred vision, bilateral Altered mental status, unspecified Qualifiers: Altered mental status type: unspecified Qualified Code(s): R41.82 - Altered mental status, unspecified - Discharge Information *PRESCRIPTION DRUG MONITORING PROGRAM REVIEWED*: Not Applicable *COPY OF PRESCRIPTION DRUG MONITORING REPORT IN PATIENT MARIFER: Not Applicable Instructions: Blurred Vision, Adult Referrals: PCP,Unknown [Primary Care Provider] - Forms: ED Department Discharge Additional Instructions: - Lab, EKG, and head CT negative - Discussed no emergent findings - We will notify you of carbon monoxide results when available - Rest and push fluids - Follow up with PCP for recheck next week, sooner if symptoms worsen - Return to ED for emergent needs Sepsis Event Note - Evaluation Sepsis Screening Result: No Definite Risk - Focused Exam Date Exam was Performed: 11/30/19 Time Exam was Performed: 13:18 - Problem List & Annotations (1) Altered mental status, unspecified SNOMED Code(s): 120837582 Code(s): R41.82 - ALTERED MENTAL STATUS, UNSPECIFIED Status: Acute Qualifiers: Altered mental status type: unspecified Qualified Code(s): R41.82 - Altered mental status, unspecified (2) Blurred vision, bilateral SNOMED Code(s): 572481013 Code(s): H53.8 - OTHER VISUAL DISTURBANCES Status: Acute - Assessment/Plan Plan: Workup essentially negative. Did discuss perhaps stress/anxiety component of symptoms. Patient is alert and oriented. NIH 4 throughout visit, essentially due to clumsiness in bilateral upper extremities, slight slurring of speech, and decreased sensation in lower extremities (which is chronic apparently). Discussed EKG, CT, and lab results. Offered patient IVF, to which patient declines. Discussed that at this time I have no emergent findings. Recommend follow up as outpatient with PCP if symptoms persist. 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 No driving until symptoms resolve. Return to ED for any emergent needs. Patient and verbalized understanding and were agreeable with plan. Patient discharged home in satisfactory condition.
== END 2019-11-28 17:07 | disposition home or self-care (01) ==
LOC: CC.ED 14:45
DX: R41.82 Altered mental status, unspecified (principal); H53.8 Other visual disturbances; I10 Essential (primary) hypertension; K21.9 Gastro-esophageal reflux disease without esophagitis; E78.00 Pure hypercholesterolemia, unspecified; Z79.899 Other long term (current) drug therapy
CPT/HCPCS: 36415; 70450; 80048; 80305-QW; 80307; 81003; 82375; 82550; 84484; 85025; 85610; 85730; 93005; 99284-25

== ENCOUNTER 2019-12-07 15:55 | Observation (INO) | payer BC ==
[2019-12-07] MEDS ORDERED: Ondansetron 4 MG Tab.DIS PO PRN (16:12)
[2019-12-07] MEDS: Sodium Chloride 0.9% 1,000 ML IV SCH (16:42)
[2019-12-07 16:54] LABS: CHLORIDE,CL 100 mEq/L (98-106); SODIUM,NA 137 mEq/L (136-145)
[2019-12-07] MEDS ORDERED: Ibuprofen 200 MG Tab PO PRN (17:08)
[2019-12-07] MEDS ORDERED: Pramipexole 0.5 MG Tab PO SCH (20:00)
[2019-12-08] MEDS: Sodium Chloride 0.9% 1,000 ML IV SCH ×2 (00:31→08:33)
[2019-12-08] MEDS ORDERED: Pantoprazole 40 MG Tab.CR PO SCH (07:00)
[2019-12-08] MEDS ORDERED: Sucralfate 1 GM Tab PO SCH (07:30)
[2019-12-08] MEDS ORDERED: LOSARTAN PO SCH (08:00)
[2019-12-08] MEDS ORDERED: HYDROCHLOROTHIAZIDE PO SCH (08:00)
[2019-12-08 12:10] VITALS: BP 157/85; PULSE 79
--- NOTE | 2019-12-12 11:06 | PCM.DCSUM1 ---
Discharge Summary - Hospital Course Free Text/Narrative:: Patient presented to clinic to see Dr. Amanda with ongoing fatigue, feeling off balance and memory issues. Feels like he can hardly stay awake. Has pain behind his left eye. Did fall x2 prior to presentation. Was recently seen in ER by Becca with complaints of memory issues, weakness, and disorientation. He had a complete work up with labs and a cT scan which were normal. He was then seen by Dr. Doll in clinic and had labs, ie. ESR, TSH, CRP and B12 which were all normal. Folic acid was slightly low. Was given steroids and antibiotics and did feel better for a few days. Admitted for neuro checks, IV fluids, and obtain MRI of brain. Has been seen by neurology in [place] and will obtain those records. Diagnosis: Stroke: No Modified [place] Scale: No Symptoms at All Modified [place] Scale Score: 0 - Discharge Data Discharge Date: 12/08/19 Discharge Disposition: Home, Self-Care 01 Condition: Fair - Referral to Home Health Primary Care Physician: Rojelio Amanda MD - Patient Summary/Data Complications: none Hospital Course: Patient is feeling better this am. Has less of a headache. Eating and drinking well. Did have MRI this am which was normal. Dr Amanda did talk with his neurologist in [place]. Patient has been seen there and had testing for parasthesia and numbness with all negative results. Neurologist advised to refer patient to [place] for further testing. Patient was informed of this. Will set up referral for this. Also advised to hold tramadol and lyrica to rule out source of symptoms or slight chance of serotonin syndrome. Take tylenol for discomfort. - Patient Instructions Diet: Usual Diet as Tolerated Activity: As Tolerated Other/Special Instructions: Dr. Amanda will contact you with arrangements for referral to [place] - Discharge Plan *PRESCRIPTION DRUG MONITORING PROGRAM REVIEWED*: No *COPY OF PRESCRIPTION DRUG MONITORING REPORT IN PATIENT MARIFER: No Home Medications: Home Meds Acetaminophen/Diphenhydramine [Acetaminophen Pm Gelcap] 1 tab PO BEDTIME PRN [History] Pantoprazole Sodium 40 mg PO DAILY 08/24/14 [History] Sucralfate [Carafate] 1.5 tab PO BID 08/24/14 [History] Losartan/Hydrochlorothiazide [Losartan-HCTZ 100-12.5 MG] 1 tab PO DAILY [History] Pramipexole [Mirapex] 2 tab PO BEDTIME 09/08/19 [History] Pregabalin [Lyrica] 150 mg PO BID 09/08/19 [History] Venlafaxine HCl [Venlafaxine ER] 75 mg PO DAILY 09/08/19 [History] - Discharge Summary/Plan Comment DC Time >30 min.: No - General Info Date of Service: 12/08/19 Admission Dx/Problem (Free Text: Weakness Unsteady Gait Functional Status: Reports: Pain Controlled, Tolerating Diet, Ambulating - Review of Systems General: Reports: Weakness, Fatigue, Malaise, Other ("feel foggy yet at times") HEENT: Reports: Visual Changes (states vision is good today) Pulmonary: Denies: Shortness of Breath, Cough Cardiovascular: Denies: Chest Pain, Edema, Lightheadedness Gastrointestinal: Denies: Abdominal Pain, Nausea, Vomiting Genitourinary: Reports: No Symptoms Musculoskeletal: Reports: Neck Pain, Joint Pain Skin: Reports: No Symptoms Neurological: Reports: Headache, Weakness - Patient Data Vitals - Most Recent: Last Vital Signs Temp 98.1 F 12/08/19 12:00 Pulse 79 12/08/19 12:00 Resp 18 12/08/19 12:00 BP 157/85 H 12/08/19 12:00 Pulse Ox 99 12/08/19 12:00 Weight - Most Recent: 225 lb Med Orders - Current: Current Medications Discontinued Medications Sodium Chloride (Normal Saline) 1,000 mls @ 125 mls/hr IV ASDIRECTED [facility] Last Admin: 12/08/19 08:33 Dose: 125 mls/hr Ibuprofen (Motrin) 200 mg PO Q4H PRN PRN Reason: Breakthrough Pain Last Admin: 12/08/19 04:30 Dose: 200 mg Losartan/Hydrochlorothiazide [Losartan-Hctz 100- 12.5 Mg] 1 tab PO DAILY [facility] Last Admin: 12/08/19 07:15 Dose: 1 tab Ondansetron HCl (Zofran Odt) 4 mg PO Q4H PRN PRN Reason: nausea, able to take PO Pantoprazole Sodium (Protonix) 40 mg PO DAILY@0700 [facility] Last Admin: 12/08/19 06:23 Dose: 40 mg Pramipexole Dihydrochloride (Mirapex) 1 mg PO BEDTIME [facility] Last Admin: 12/07/19 19:34 Dose: 1 mg Sucralfate (Carafate) 1.5 gm PO BIDAC [facility] Last Admin: 12/08/19 07:14 Dose: 1.5 gm - Exam General: Reports: Alert, Oriented HEENT: Reports: Mucous Membr. Moist/[place] Neck: Reports: Supple Lungs: Reports: Clear to Auscultation, Normal Respiratory Effort Cardiovascular: Reports: Regular Rate, Regular Rhythm GI/Abdominal Exam: Normal Bowel Sounds, Soft, Non-Tender Extremities: Normal Inspection, No Pedal Edema Skin: Reports: Warm, Dry Neurological: Reports: No New Focal Deficit
== END 2019-12-08 13:45 | disposition home or self-care (01) ==
LOC: CC.MS 15:55 → UNDOADMOB 15:55 → CC.MS 16:12
PROVIDERS: ADMIT Family Medicine; ATTEND Family Medicine
DX: M62.81 Muscle weakness (generalized) (principal); R27.0 Ataxia, unspecified; E53.8 Deficiency of other specified B group vitamins; F41.8 Other specified anxiety disorders; I10 Essential (primary) hypertension; G47.33 Obstructive sleep apnea (adult) (pediatric); Z79.899 Other long term (current) drug therapy
CPT/HCPCS: 36415; 80053; 82550; 83735; 84484; 85025; 93005; 96360; 96361; A9270; G0378; J7030

== ENCOUNTER 2022-08-02 15:53 | Emergency (ER) | payer BC ==
[2022-08-02] MEDS ORDERED: Ketorolac 30 MG/ML SDV IVPUSH ONE (16:02)
[2022-08-02] MEDS ORDERED: methylPREDNISolone Sodium Succinate 125 MG/2 ML SDV IVPUSH SCH (16:15)
[2022-08-02 16:22] VITALS: PULSE 88
[2022-08-02 16:37] VITALS: BP 161/91
[2022-08-02] MEDS ORDERED: Dexamethasone/Tobramycin 0.1-0.3% Ophth Susp 2.5 ML Bottle EYELF SCH (16:45)
== END 2022-08-02 17:17 | disposition home or self-care (01) ==
LOC: CC.ED 15:53
DX: H11.422 Conjunctival edema, left eye (principal); E78.00 Pure hypercholesterolemia, unspecified; I10 Essential (primary) hypertension; K21.9 Gastro-esophageal reflux disease without esophagitis; Z88.0 Allergy status to penicillin; Z79.899 Other long term (current) drug therapy
CPT/HCPCS: 96374; 96375; 99283-25; 99284; A9270-GY; J1885; J2930

== ENCOUNTER 2022-09-28 10:45 | Emergency (ER) | payer BC ==
[2022-09-28 11:11] VITALS: BP 120/96; PULSE 110
[2022-09-28 11:47] LABS: CHLORIDE,CL 97 mEq/L (98-106); SODIUM,NA 134 mEq/L (136-145)
[2022-09-28 11:48] LABS: ESTIMATED GFR 105 mL/min (>=60)
[2022-09-28 12:12] LABS: CORONAVIRUS COVID-19 NAA NEGATIVE (NEGATIVE); RESPIRATORY SYNCYTIAL VIR NAA POSITIVE (NEGATIVE)
[2022-09-28] MEDS ORDERED: Sodium Chloride 0.9% 10 ML Syringe FLUSH PRN (12:13)
[2022-09-28] MEDS ORDERED: Iopamidol 612 MG/ML 100 ML Bottle IVPUSH ONE (12:13)
[2022-09-28] MEDS ORDERED: Iopamidol 755 Mg/ML 100 ML Bottle IVPUSH ONE (12:26)
[2022-09-28 12:33] LABS: AMPHETAMINES,URINE NEGATIVE (NEGATIVE); BARBITURATES,URINE NEGATIVE (NEGATIVE); BENZODIAZEPINE,URINE NEGATIVE (NEGATIVE); MDMA (ECSTASY), URINE NEGATIVE (NEGATIVE); METHADONE,URINE NEGATIVE (NEGATIVE); METHAMPHETAMINES,URINE NEGATIVE (NEGATIVE); OPIATES,URINE NEGATIVE (NEGATIVE); OXYCODONE,URINE NEGATIVE (NEGATIVE); PHENCYCLIDINE,URINE NEGATIVE (NEGATIVE); TCA,URINE POSITIVE (NEGATIVE)
== END 2022-09-28 14:49 | disposition home or self-care (01) ==
LOC: CC.ED 10:45
DX: R05.9 Cough, unspecified (principal); B97.4 Respiratory syncytial virus as the cause of diseases classified elsewhere; F19.90 Other psychoactive substance use, unspecified, uncomplicated; E78.00 Pure hypercholesterolemia, unspecified; I10 Essential (primary) hypertension; Z88.0 Allergy status to penicillin; Z79.899 Other long term (current) drug therapy; Z20.822 Contact with and (suspected) exposure to COVID-19
CPT/HCPCS: 0241U; 36415; 71046; 71275; 80053; 80305-QW; 80307; 85025; 85379; 99284; 99285; Q9967

== ENCOUNTER 2024-11-17 15:10 | Emergency (ER) | payer BC ==
[2024-11-17 15:22] VITALS: BP 149/87; PULSE 101
== END 2024-11-17 16:55 | disposition home or self-care (01) ==
LOC: CC.ED 15:10
DX: M25.551 Pain in right hip (principal); I10 Essential (primary) hypertension; E78.00 Pure hypercholesterolemia, unspecified; K21.9 Gastro-esophageal reflux disease without esophagitis; Z88.0 Allergy status to penicillin; Z79.82 Long term (current) use of aspirin; Z79.899 Other long term (current) drug therapy
CPT/HCPCS: 72100; 99283